=== PATIENT | male | born 1975 | race Caucasian/White ===

== ENCOUNTER 2024-06-11 16:52 | Emergency (ER) | payer OTHER, SELFPAY ==
--- NOTE | ~2024-06-11 | CT_ITS ---
CLINICAL HISTORY: r sided pain etiology?? CT angiography chest with contrast. 3D Postprocessing. Comparison: CR - XR CHEST 2V - 06/11/24 18:15 EST Findings: The heart size is normal. RV/LV ratio is normal. The thoracic aorta is normal caliber. No pulmonary artery filling defects. The visualized thyroid and mediastinum are unremarkable. The lungs are clear. The upper abdomen is unremarkable. The bones are intact. IMPRESSION: 1. No pulmonary emboli. This document has been electronically signed by: Christiana Hayes MD on 06/11/2024 21:15:21
--- NOTE | ~2024-06-11 | XR_ITS ---
CLINICAL HISTORY: chest pain Two views of the chest. COMPARISON: None FINDINGS: Normal heart and mediastinal contours. No consolidation. No pleural effusion or pneumothorax. No fracture identified. IMPRESSION: 1. No consolidation. This document has been electronically signed by: Zachariah Capps MD on 06/11/2024 18:47:50
--- NOTE | 2024-06-11 16:54 | ECG_ITS ---
Test Reason : chest pain Blood Pressure : */* mmHG Vent. Rate : 75 BPM Atrial Rate : 75 BPM P-R Int : 154 ms QRS Dur : 96 ms QT Int : 360 ms P-R-T Axes : 42 0 52 degrees QTcB Int : 402 ms Normal sinus rhythm Normal ECG No previous ECGs available Referred By: Sandy Claros Electronically Signed By: СВЕТЛАНА JUARES
[2024-06-11 17:44] VITALS: BP 142/88; PULSE 79; RESP 18; TEMP 36.6; O2SAT 98; BMI 29.6
--- NOTE | 2024-06-11 17:48 | ED.CHESTPAIN ---
HPI - Chest Pain General Chief Complaint: Chest Pain Stated Complaint: chest, back pain Time Seen by Provider: 06/11/24 19:30 Source: patient Mode of arrival: ambulatory Limitations: no limitations History of Present Illness ED Provider: HPI narrative: Patient's history of high cholesterol no known coronary artery disease noticed right scapular pain 2 days ago without doing any activity pain comes and goes gets worse on movements no shortness a breath no diaphoresis no left-sided chest pain today patient noticed pain coming to the front no rash no calf pain no history of blood clots Related Data Previous Rx's ?Medication ?Instructions ?Recorded cyclobenzaprine 10 mg tablet 10 mg PO Q8H #20 tabs 06/11/24 ibuprofen 600 mg tablet 600 mg PO Q6H PRN fever or pain 06/11/24 #30 tabs Allergies Allergy/AdvReac Type Severity Reaction Status Date / Time No Known Allergies Allergy Verified 06/11/24 17:46 Review of Systems Review of Systems: Yes all other systems are reviewed and are negative Physical Exam Vital Signs: Vital Signs: Last Vital Signs Temp 97.8 F 06/11/24 21:47 Pulse 67 06/11/24 21:47 Resp 11 L 06/11/24 21:47 BP 128/78 06/11/24 21:47 Pulse Ox 97 06/11/24 21:47 O2 Del Method Room Air 06/11/24 21:47 BMI result Body Mass Index 29.6 Appearance: Alert. Oriented X3. No acute distress. Eyes: PERRLA, No Nystagmus ENT: Pharynx normal. Oral Mucosa moist Neck: Normal inspection. Neck supple. CVS: Normal heart rate and rhythm. Pulses normal. Respiratory: No respiratory distress. Equal air entry bilateral, no wheezing/rales/rhonchi Abdomen: Soft and nontender. Bowel sounds are present, no mass palpable, no CVA tenderness Skin: Skin warm and dry. Normal skin color. Normal skin turgor. No rash back: Tenderness right rhomboids Extremities: No lower extremity edema. No calf tenderness Neuro: Oriented X 3. No motor deficit. Course Course Course Narrative: This is a Rapid Medical Examination (RME) performed by Grant Claros PA-C in triage. Full HPI, ROS, assessment and treatment plan per primary provider in the Main ED. 48 yo male here for eval of right sided back pain that has now moved to right chest and right arm x2 days. no hx GA. no recent travel/long car rides. no sob, palpitation, le pain/swelling. no recent heavy lifting. Plan: ekg, cxr, labs Medications Administered Discontinued Medications Generic Name Dose Route Start Last Admin Trade Name Lance PRN Reason Stop Dose Admin Iohexol 100 ml 06/11/24 20:18 06/11/24 20:18 Iohexol 350 Mg/Ml 100 Ml Infus..Btl IV 06/11/24 20:19 65 ml ONCE ONE Administration Ketorolac Tromethamine 30 mg 06/11/24 21:03 06/11/24 21:28 Ketorolac Tromethamine 30 Mg/Ml Vial IVPUSH 06/11/24 21:04 30 mg ONCE ONE Administration Medical Decision Making Medical Decision Making [facility] Narrative: Patient's right-sided chest pain CTA chest negative for PE 2 sets of cardiac enzymes negative EKG without any ischemic changes likely musculoskeletal pain patient advised to take ibuprofen and follow with PCP as needed Differential Diagnosis Differential Diagnoses: The differential diagnosis associated with the presentation includes ACS/PE/pleurisy/musculoskeletal Admission/Observation Consideration of admission/observation: Escalation of care including admission/observation considered Lab Data [facility] Lab Attestation statement: I reviewed the patient's lab results. 06/11/24 18:14 06/11/24 18:14 Labs: Lab Results 06/11/24 06/11/24 Range/Units 18:14 19:54 WBC 7.1 (4.8-10.8) X10*3/uL RBC 5.27 (4.60-5.80) X10*6/uL Hgb 16.0 (14.0-18.0) g/dl Hct 46.0 (42.0-52.0) % MCV 87.3 (80.0-98.0) fL MCH 30.4 (27.0-33.0) pg MCHC 34.8 (31.0-36.0) g/dl RDW 11.9 (11.0-16.0) % Plt Count 271 (160-400) X10*3/uL MPV 9.6 (9.4-12.4) fL Immature Gran % (Auto) 0.1 (0.0-0.4) % Neut % (Auto) 43.2 L (45-73) % Lymph % (Auto) 44.8 H (20-40) % [place] % (Auto) 9.2 (2-11) % Eos % (Auto) 1.6 (0-4) % Baso % (Auto) 1.1 (0-2) % Lymph # (Auto) 3.2 (1.2-4.9) X10*3/uL [place] # (Auto) 0.7 (0.1-1.2) X10*3/uL Eos # (Auto) 0.1 (0.0-0.4) X10*3/uL Baso # (Auto) 0.1 (0.0-0.2) X10*3/uL Abs Immat Gran (auto) 0.01 (0.00-0.03) X10*3/uL Absolute Neuts (auto) 3.1 (2.0-8.3) x10*3/uL Absolute Nucleated RBC 0.000 (0.0-0.012) X10*3/uL Nucleated RBC % (auto) 0.0 (0.0-0.2) /100WBC PT 10.5 L (10.9-12.4) SEC INR 0.9 (0.9-1.1) Sodium 140 (135-145) mmol/L Potassium 3.9 (3.3-5.1) mmol/L Chloride 106 (96-108) mmol/L Carbon Dioxide 25 (22-29) mmol/L Anion Gap 13 (12-20) BUN 17 H (9-16) mg/dL Creatinine 0.93 (0.5-1.4) mg/dL Estim Creat Clear Calc 122.4 Estimated GFR > 60 Random Glucose 105 (60-115) mg/dL Calcium 9.9 (8.4-10.2) mg/dL Magnesium 2.3 (1.6-2.6) mg/dL Total Bilirubin 0.4 (0.0-1.0) mg/dL AST 25 (5-37) U/L ALT 35 (0-40) U/L Alkaline Phosphatase 67 (39-117) U/L Troponin I High Sens < 2.7 < 2.7 (<3.5-35.0) ng/L Total Protein 9.2 H (6.5-8.0) g/dL Albumin 4.7 (3.5-5.0) g/dL Lipase 52 (8-78) U/L Influenza Type A (PCR) NEGATIVE (Negative) Influenza Type B (PCR) NEGATIVE (Negative) RSV RNA Qual (PCR) NEGATIVE (Negative) SARS-CoV-2 RNA (RT-PCR) NEGATIVE (Negative) Independent Interpretation I performed an independent interpretation of an: EKG Interpretation: Normal sinus rhythm rate 75 beats per minute normal intervals normal axis no acute STT wave changes no acute ischemia Discharge Plan Discharge Clinical Impression: Strain of right rhomboid muscle Patient Disposition: Home, Self-Care Instructions: Muscle Strain (ED) Additional Instructions: Apply ice Ibuprofen and muscle relaxant as prescribed Your workup for the heart is negative for acute damage to the heart Prescriptions: New cyclobenzaprine 10 mg tablet 10 mg PO Q8H Qty: 20 0RF ibuprofen 600 mg tablet 600 mg PO Q6H PRN (Reason: fever or pain) Qty: 30 0RF Interventions: ED Discharge Assessment Last Done: 06/11/24 21:47 Discharge Date/Time: 06/11/24 21:49 Print Language: [place]
[2024-06-11 18:19] LABS: MANUAL DIFF FLAG NO
[2024-06-11 18:21] LABS: Basophils Absolute Auto 0.1 X10*3/uL (0.0-0.2); Basophils Percent Auto 1.1 % (0-2); Eosinophils Absolute Auto 0.1 X10*3/uL (0.0-0.4); Eosinophils Percent Auto 1.6 % (0-4); Imm Gran Abs Auto 0.01 X10*3/uL (0.00-0.03); Imm Gran Pct Auto 0.1 % (0.0-0.4); Lymphocytes Absolute Auto 3.2 X10*3/uL (1.2-4.9); Lymphocytes Percent Auto 44.8 % (20-40); Mean Corpuscular HGB Conc 34.8 g/dl (31.0-36.0); Mean Corpuscular Hemoglobin 30.4 pg (27.0-33.0); Mean Corpuscular Volume 87.3 fL (80.0-98.0); Mean Platelet Volume 9.6 fL (9.4-12.4); Monocytes Absolute Auto 0.7 X10*3/uL (0.1-1.2); Monocytes Percent Auto 9.2 % (2-11); Neutrophils Absolute Auto 3.1 x10*3/uL (2.0-8.3); Neutrophils Percent Auto 43.2 % (45-73); Platelet Count 271 X10*3/uL (160-400); Red Blood Count 5.27 X10*6/uL (4.60-5.80); Red Cell Distribution Width 11.9 % (11.0-16.0); White Blood Count 7.1 X10*3/uL (4.8-10.8)
[2024-06-11 18:29] LABS: INTERNATIONAL NORM RATIO 0.9 (0.9-1.1); Prothrombin Time 10.5 SEC (10.9-12.4)
[2024-06-11 18:45] LABS: Troponin-I High Sensitivity < 2.7 ng/L (<3.5-35.0)
[2024-06-11 18:47] LABS: Alanine Aminotransferase 35 U/L (0-40); Albumin Level 4.7 g/dL (3.5-5.0); Anion Gap 13 (12-20); Aspartate Amino Transferase 25 U/L (5-37); Bilirubin Total 0.4 mg/dL (0.0-1.0); Blood Urea Nitrogen 17 mg/dL (9-16); Calcium 9.9 mg/dL (8.4-10.2); Carbon Dioxide 25 mmol/L (22-29); Chloride 106 mmol/L (96-108); Creatinine Clr Calc Pharmacy 122.4; Estimated Glomerular Filt Rate > 60; Glucose Random 105 mg/dL (60-115); Lipase 52 U/L (8-78); Magnesium 2.3 mg/dL (1.6-2.6); Potassium 3.9 mmol/L (3.3-5.1); Sodium 140 mmol/L (135-145); Total Protein 9.2 g/dL (6.5-8.0)
[2024-06-11 18:51] LABS: Alkaline Phosphatase 67 U/L (39-117)
[2024-06-11 19:08] LABS: Influenza A PCR NEGATIVE (Negative); Influenza B PCR NEGATIVE (Negative); Resp Syncy Virus RNA Qual PCR NEGATIVE (Negative); SARS COV2 PCR INHOUSE NEGATIVE (Negative)
[2024-06-11 19:37] VITALS: BP 135/87; PULSE 66; RESP 18; TEMP 36.4; O2SAT 97
--- NOTE | 2024-06-11 19:40 | PC.NURSE ---
Pt a&ox4, no signs of distress Pt reports 9/10 right chest pain Pts family at bedside Plan of care ongoing.
[2024-06-11] MEDS: iohexoL 350 MG/ML 100 ML INFUS..BTL IV (20:18)
[2024-06-11 20:21] LABS: Troponin-I High Sensitivity < 2.7 ng/L (<3.5-35.0)
[2024-06-11] MEDS: Ketorolac Tromethamine 30 MG/ML VIAL IVPUSH (21:28)
[2024-06-11 21:47] VITALS: BP 128/78; PULSE 67; RESP 11; TEMP 36.6; O2SAT 97
== END 2024-06-11 21:49 | disposition home or self-care (01) ==
PROVIDERS: Physician Assistant Medical; Emergency Provider Internal Medicine
DX: S46.911A Strain of unspecified muscle, fascia and tendon at shoulder and upper arm level, right arm, initial encounter (principal); R07.89 Other chest pain; M54.50 Low back pain, unspecified; M79.601 Pain in right arm; X58.XXXA Exposure to other specified factors, initial encounter; Y93.9 Activity, unspecified; Y92.9 Unspecified place or not applicable; Y99.8 Other external cause status; Z03.818 Encounter for observation for suspected exposure to other biological agents ruled out; Z79.899 Other long term (current) drug therapy
CPT/HCPCS: 0241U; 36415; 71046; 71275; 80053; 83690; 83735; 84484; 85025; 85610; 93005; 96374; 99284; 99285; J1885; Q9967

== ENCOUNTER → 2024-06-11 16:54 | Outpatient (BNV) | payer OTHER, SELFPAY | PROVIDERS: Emergency Provider Internal Medicine; Visit Provider Internal Medicine | DX: R07.9 Chest pain, unspecified (principal) | CPT/HCPCS: 93010 ==

== ENCOUNTER → 2024-06-11 17:47 | Outpatient (BNV) | payer OTHER, SELFPAY | PROVIDERS: Visit Provider Radiology Diagnostic Radiology | DX: R07.89 Other chest pain (principal); R07.9 Chest pain, unspecified | CPT/HCPCS: 71046; 71275 ==